=== PATIENT | female | born 1925 | race Caucasian/White ===

== ENCOUNTER 2017-04-22 02:51 | Emergency (ER) | payer OTHER ==
[~2017-04-22] VITALS: Ht 167.6 cm; Wt 68.0 kg
[~2017-04-22 02:51] MED LIST: ACIDOPHILUS1 EAC3; AFEDITAB CR30 MG PO; AMITIZA8 MCG PO; AMITRIPTYLINE H10 M3 PO; ATENOLOL 50 MG50 M1 PO; ATENOLOL 50MG T50 M1 PO; BENGAY GREASELE57 GM TOP; BENTYL 20 MG TA20 M1 PO; BISACODYL SUPP10 MG RECTAL; CARAFATE 1 GM TA1 G1 PO; CELEBREX 200 M200 M1 PO; COLACE100 MG; COLACE100 MG PO; COUMADIN 2 MG TA2 M1 PO; COUMADIN 2.5MG2.5 M1 PO; CYCLOBENZAPRINE5 MG PO; DEXILANT60 MG; DIFLUCAN150 MG PO; DOXYCYCLINE 10100 MG PO; ENOXAPARIN120 MG/0.1 SUBQ; ENOXAPARIN80 MG/0.1 SUBQ; FAMCYCLOVIR 50500 M1 PO; FLEXERIL; HYDROCHLOROTH12.5 M1 PO; HYDROCHLOROTH12.5 MG PO; HYDROCODONE-AP1 EAC6 PO; HYDROCORTISONE28 GM TP; K-TAB ER20 MEQ PO; KLOR-CON 10 ER10 MEQ PO; LASIX 20 MG TAB20 MG PO; LIDODERM 5%1 PATC1; LIDODERM 5%1 PATC1 TRANSDERM; LINZESS145 MCG PO; LIORESAL 10 MG10 MG; LIORESAL 10 MG10 MG PO; LISINOPRIL20 MG PO; LISINOPRIL5 MG PO; MENTHOL TOP; MIRALAX17 GM PO; NORCO 5-325 TA1 EACH PO; ONDANSETRON HCL4 M2 PO; OXYCODONE HCL 55 MG PO; OXYCONTIN10 M1 PO; PAIN RELIEF CRE57 GM TOP; PANTOPRAZOLE SO40 M1 PO; PERCOCET 5-3251 EACH PO; PERCOCET PO; POLYETHYLENE G500 G3 PO; POTASSIUM20; PRILOSEC 20 MG20 MG PO; PRINIVIL20 MG; PROBIOTIC1 EAC1 PO; PROTONIX40 M1 PO; SENNA PLUS TAB1 EACH PO; SENOKOT-S1 TA1 PO; SIMVASTATIN20 MG PO; SIMVASTATIN40 MG PO; SODIUM PHOSPHATE; TIZANIDINE HCL4 MG PO; TRAMADOL 50 MG50 MG; TRAMADOL 50 MG50 MG PO; TYLENOL325 MG PO; VALACYCLOVIR1000 MG; VALACYCLOVIR1000 MG PO; ZANAFLEX4 M1 PO; ZOLOFT25 MG PO; [UNRECOGNIZED DRUG - OTHER] TOP
[2017-04-22] MEDS ORDERED: ACIDOPHILUS1 EAC3 PO (03:29)
[2017-04-22] MEDS ORDERED: OCUVITE ADULT1 EAC1 PO (03:30)
[2017-04-22] MEDS ORDERED: CENTRUM SILVER1 EAC4 PO (03:30)
[2017-04-22] MEDS ORDERED: SYNTHROID50 MCG PO (03:30)
[2017-04-22] MEDS ORDERED: MIRALAX17 GM PO (03:31)
[2017-04-22] MEDS ORDERED: NIFEDIPINE ER30 M1 PO (03:31)
[2017-04-22] MEDS ORDERED: ZANTAC 150MG T150 MG PO (03:32)
[2017-04-22] MEDS ORDERED: REQUIP 0.25 M0.25 M1 PO (03:33)
[2017-04-22] MEDS ORDERED: CARAFATE 1 GM TA1 G1 PO (03:35)
[2017-04-22] MEDS ORDERED: VITAMIN D3400 UNIT PO (03:38)
[2017-04-22 04:27] LABS: CALCIUM 8.9 mg/dL (8.5-10.1); CREATININE 0.6 mg/dL (0.6-1.0); HEMATOCRIT 40.4 % (37.0-47.0); HEMOGLOBIN 13.5 gm/dL (12.0-15.0); MCH 28.6 pg (26.0-34.0); MCHC 33.3 g/dL (28.0-37.0); MCV 85.9 fL (80.0-100.0); PLATELET COUNT 195 thou/uL (150-400); POTASSIUM 3.5 mmol/L (3.5-5.1); RBC 4.71 mil/uL (4.20-5.00); WBC 14.3 thou/uL (4.0-11.0)
[2017-04-22 04:31] LABS: APTT 28.5 Seconds (24.5-32.8); INR 2.7; PROTIME 27.7 Seconds (9.3-11.4)
[2017-04-22 04:56] LABS: ABSOLUTE NEUTROPHILS 11.4 thou/uL (1.4-8.2); ANISOCYTOSIS 1+; ATYPICAL LYMPHS 3 %; POLYCHROMASIA OCCASIONAL
[2017-04-22] MEDS ORDERED: KEFLEX500 M1 PO (05:59)
[2017-04-22 06:25] VITALS: BP 199/109
== END 2017-04-22 06:25 | disposition home or self-care (01) ==
LOC: ER 02:51
PROVIDERS: Emergency Medicine
DX: R04.0 Epistaxis (principal); I10 Essential (primary) hypertension; I50.9 Heart failure, unspecified; K21.9 Gastro-esophageal reflux disease without esophagitis; G89.29 Other chronic pain; Z79.01 Long term (current) use of anticoagulants; Z91.041 Radiographic dye allergy status; Z88.2 Allergy status to sulfonamides; Z90.710 Acquired absence of both cervix and uterus; Z90.49 Acquired absence of other specified parts of digestive tract; Z98.890 Other specified postprocedural states

== ENCOUNTER 2017-05-14 10:17 | Inpatient (IN) | payer OTHER ==
[~2017-05-14] VITALS: Ht 165.1 cm; Wt 66.7 kg
--- NOTE | ~2017-05-14 | EKG ---
[address] [place] [address] ELECTROCARDIOGRAM REPORT Name: ADELA WHITFIELD Room #: 445-P ADM IN M.R.#: [id number] Admission: 05/14/17 Attend Phys: Get Kwon MD Discharge: Date of : [birth year] Report #: [id number] THIS REPORT FOR: //name// [facility] ED Test Date: 2017-05-14 Test Time: 11:04:48 Pat Name: ADELA WHITFIELD Department: Room: [facility] Gender: F Manager Zone: MOLLY : 1925 Requested By: Avelino Lundy Order Number: [id number] MD: Genaro Rosas Measurements Intervals [place] Rate: 76 P: [place]: QRS: 33 QRSD: 105 T: 65 QT: 407 QTc: 458 Interpretive Statements Atrial fibrillation Nonspecific ST and T wave abnormality Compared to ECG 08/27/2015 06:35:23 Sinus rhythm no longer present Electronically Signed On 05-14-2017 17:17:35 COMPLEX CARE NURSE by Genaro Rosas [email or web address] <ELECTRONICALLY SIGNED> By: Genaro Rosas MD, [facility] 05/14/17 1707 1104 1104 Genaro Rosas MD, [facility] /EPI
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
--- NOTE | ~2017-05-14 | HC ---
[facility] [place] [address] CONSULTATION Name: PEPPERSARAHADELALOVE MANJARREZ Room #: 445-P ADM IN M.R.#: [id number] Admission: 05/14/17 Attend Phys: Get Kwon MD Discharge: Date of : [birth year] Report #: [id number] THIS REPORT FOR: //name// CC: Get Doty REASON FOR CONSULTATION: I was asked to reevaluate concerning persistent leukocytosis. HISTORY OF PRESENT ILLNESS: The patient is an 89-year-old group home resident at [facility], who presents with generalized weakness and confusion for 1 week duration. She was found to have increased peripheral edema. At the time of presentation, she had a white count of 16.5. From review of her previous CBCs, it is noted that she was in the Emergency Room on April 22 where her white count was 14.3. This was associated with an episode of epistaxis. She was found to have lower extremity edema with venous stasis changes and cellulitis of the left lower leg. Placed on vancomycin initially along with ceftriaxone. Has continued on ceftriaxone. Despite this, her white count still is 14.9 today. No fever, chills or sweats. The patient has had no further complaints. Her mental status is back to nearly her baseline. No cough or sputum production. No nausea, vomiting or diarrhea. No dysuria or frequency. She does have urinary incontinence. Her lower extremity edema has improved. She has a remote history of left breast cancer. Has coronary artery disease with paroxysmal atrial fibrillation and congestive heart failure history. No other cancer history. She has been vaccinated for pneumonia and influenza. The patient's daughter states that there was significant amount of respiratory tract infection noted at the facility. The patient has been treated for lower urinary tract infection a month ago with cephalexin. Prior to her admission, she was placed on doxycycline for her lower extremities. ALLERGIES: IODINE, SULFA. MEDICATIONS: As noted on her MAR, now on ceftriaxone. PAST MEDICAL HISTORY: Coronary artery disease, status post CABG, hypertension, hyperlipidemia, paroxysmal atrial fibrillation, congestive heart failure, breast cancer in 1995 with lumpectomy and radiation, shingles, cholecystectomy, constipation, chronic pain syndrome, gastroesophageal reflux, hysterectomy, constipation, IBS, compression fracture L2-L3, laminectomy L3, L4, 5, macular degeneration. REVIEW OF SYSTEMS: Noted above with no additions. Most notably no decubiti. No cough or sputum production. No pharyngitis symptoms. No dysuria, frequency, back or flank pain. [address] [address] CONSULTATION Name: ADELA WHITFIELD Room #: 445-P [facility] IN M.R.#: [id number] Admission: 05/14/17 Attend Phys: Get Kwon MD Discharge: Date of : [birth year] Report #: [id number] PHYSICAL EXAMINATION: VITAL SIGNS: Afebrile and hemodynamically stable. GENERAL: She was alert and cooperative, although she was mildly confused. She did not know where she was. HEENT: Unremarkable. NECK: Supple. There is no adenopathy. LUNGS: Few crackles heard in the bases bilaterally without consolidation. HEART: Regular, without murmur. ABDOMEN: Soft, nontender, no hepatosplenomegaly or mass. EXTREMITIES: She had 1+ peripheral edema, left lower extremity. No evidence of cellulitis. Pulses were palpable. NEUROLOGIC: Nonfocal. LABORATORY STUDIES: Hemoglobin 13.5, platelet count 166,000, WBC 14.9. Differential on admission was unremarkable. Sodium 141, potassium 2.2, bicarbonate 33, creatinine 0.7, on admission AST was 78, ALT 126, bilirubin 0.8, alkaline phosphatase 104. Procalcitonin was unremarkable. BNP 3663. Urinalysis unremarkable. Blood culture negative. Ultrasound negative for DVT. Chest x-ray, bibasilar fine infiltrates. Echocardiogram, diastolic dysfunction. IMPRESSION: Persistent leukocytosis, which has been evident for a month. Differential initially was unremarkable. This will be repeated along with a peripheral smear. She has evidence of mild hepatitis. Unclear if this is related to viral infection or more passive congestion from her heart failure. We will repeat hepatic profile. We will also continue with antibiotics enterally. Start her on Tamiflu until we get viral respiratory panel back. Switch ceftriaxone to Omnicef to both cover pulmonary and skin and soft tissue infection. Repeat her chest x-ray. Check urine antigens. If no improvement, then would consider imaging her abdomen. <ELECTRONICALLY SIGNED> By: Fahad Irwin MD 05/18/17 0915 1057 192 Fahad Irwin MD /nt
--- NOTE | ~2017-05-14 | HC ---
[facility] [place] [address] CONSULTATION Name: ADELA WHITFIELD Room #: 447-P ADM IN M.R.#: [id number] Admission: 05/14/17 Attend Phys: eGt Kwon MD Discharge: Date of : [birth year] Report #: [id number] THIS REPORT FOR: //name// CC: Get Doty REASON FOR CONSULTATION: Hypokalemia. REASON FOR PRESENTATION: Generalized weakness. HISTORY OF PRESENT ILLNESS: The history is obtained from the medical chart. She is really not able to provide me with the details of the history. She is an 89-year-old with what seems to be dementia. She was brought from her long-term with generalized weakness. She was found to have cellulitis of both lower extremities and was admitted for further evaluation and management. It does look like that she had some sort of malnutrition. On her presentation, she was found to be hypokalemic with hypomagnesemia. This has required repeated replacement with no success so far. Potassium has been as low as 2.3. She is on the alkalotic side with a carbon dioxide of 32. She also had some sort of hypomagnesemia with the magnesium of 1.7 at presentation and her blood pressure is elevated. Again, as I have stated, the details of her past medical history are not available. PAST MEDICAL HISTORY: 1. No known renal issues. 2. Breast cancer in 1995. 3. CABG x 3. 4. Hyperlipidemia. 5. Chronic pain syndrome. 6. Questionable history of cardiac thrombus. 7. Hysterectomy. 8. Macular degeneration. 9. Intestinal obstructions in the past. FAMILY HISTORY: Unobtainable given the patient's mental status. ALLERGIES: CONTRAST. SOCIAL HISTORY: [facility]. No drug or alcohol abuse. REVIEW OF SYSTEMS: Unobtainable given the patient's mental status. PHYSICAL EXAMINATION: GENERAL: She is alert, but disoriented. VITAL SIGNS: Blood pressure is 180/92, temperature 36.1. HEAD AND NECK: No jugular venous distention. CHEST: Limited air entry bilaterally, but no crackles. [facility] [address] [place] [address] CONSULTATION Name: ADELA WHITFIELD Room #: 447-P [facility] IN [facility].#: [id number] Admission: 05/14/17 Attend Phys: Get Kwon MD Discharge: Date of : [birth year] Report #: [id number] CARDIOVASCULAR: No rub detected. ABDOMEN: Soft, nontender. LOWER EXTREMITIES: Jose L wraps applied bilaterally. LABORATORY DATA: Laboratory values reviewed. White blood cell count 15.5. UA is completely unremarkable. Potassium is 2.5, carbon dioxide is 32. No magnesium this morning. ASSESSMENT, IMPRESSION, PLAN: 1. Hypertension. 2. Persistent hypokalemia with hypertension and metabolic alkalosis. 3. Debility. 4. Lower extremity cellulitis. 5. History of cardiac thrombus in the past. 6. History of breast cancer. 7. Source of her hypokalemia will need to be investigated. I will send appropriate laboratory values. 8. Given her metabolic alkalosis, hypokalemia and high blood pressure, we will initiate the patient on Aldactone. We will continue to follow along. <ELECTRONICALLY SIGNED> By: Harshil Sol MD 05/20/17 1703 0810 1058 Harshil Sol MD /nt
--- NOTE | ~2017-05-14 | S ---
[facility] [place] [address] SURGICAL PATH RPT PROCEDURE Name: ADELA WHITFIELD Room #: 445-P ADM IN M.R.#: [id number] Admission: 05/14/17 Date of : [birth year] Discharge: Report #: [id number] Path Case #: [id number] PATHOLOGY REPORT COLLECTION DATE: 05/17/2017 RECEIVED DATE: 05/17/2017 SUBMITTING PHYS: Dr. Get Kwon OTHER PHYS: Dr. Christel Irwin SPECIMEN(S) RECEIVED: A.Peripheral smear * * * * * * * * * * * * FINAL DIAGNOSIS: Peripheral blood smear: - Mild leukocytosis / neutrophilia (see comment). COMMENT: Overall, the peripheral blood has mild leukocytosis / neutrophilia. The hemoglobin and platelet counts are within the normal reference ranges. Mild reactive changes are noted. The etiology of the findings is unclear based entirely on slide review. It is likely a reactive condition. Potential causes of leukocytosis and neutrophilia include infections, drug reactions, smoking and primary bone marrow disorders. If persistent, progressive and/or unexplained, BCR-ABL mutational analysis may provide additional information, if clinically indicated. Correlation with clinical history and additional laboratory data is recommended. (CLW:candace; 05/17/2017) PATHOLOGIST: Ania Poole M.D. REPORT ELECTRONICALLY SIGNED BY: Ania Poole M.D. DATE/TIME: 05/18/2017 13:13 * * * * * * * * * * * * MICROSCOPIC DESCRIPTION: CBC Data (05/14/17): WBC 16,500 /uL, RBC 4.71, hemoglobin 13.4 g/dL, hematocrit 40.7%, MCV 86.5 fL, MCH 28.5 pg, MCHC 32.9 g/dL, RDW 17.6%. Platelet count 171,000 /uL. Automated white blood cell differential: segs 87.9%, lymphs 5.3%, monos 6.3%, eos 0.2%, and basos 0.3%. Peripheral Blood Smear: Cytomorphological examination of the Baron's stained peripheral blood smear confirms the provided data. Red blood cells are normocytic and are without significant anisopoikilocytosis. White blood cells are mildly increased in number. They are predominantly [address] [address] SURGICAL PATH RPT PROCEDURE Name: JELENA WHITFIELDLOVE MANJARREZ Room #: 445-P ADM IN [facility].#: [id number] Admission: 05/14/17 Date of : [birth year] Discharge: Report #: [id number] Path Case #: [id number] segmented neutrophils with reactive changes. They are without significant dyspoiesis or significant left shift. Lymphocytes are predominantly small, round, and mature appearing with condensed chromatin and scant cytoplasm with admixed large granular lymphocytes and occasional reactive appearing lymphocytes. On scanning, no markedly atypical lymphoid cells are seen. Monocytes are mature. Platelets are adequate in number and mainly normal in morphology with rare larger platelets noted. (CLW:candace; 05/17/2017) GROSS PATHOLOGY: Received are four peripheral blood smears (2 Baron's stained and 2 unstained), all labeled Adela Whitfield I. CLINICAL HISTORY: 89-year-old woman with leukocytosis. Morphologic review of the peripheral blood smear is requested by the patient's physician. INITIAL CPT CODE(S): A; [place] Professional services performed by [facility] at [facility] [address], [place] [address] Technical services performed by [facility] at [address] [place] [address], [address], [place] [address]. Avelino Lundy [facility] [address] [place] [address] PHONE: [phone] DIRECTOR: Campos Guillen M.D. * * * END OF REPORT * * *
[~2017-05-14 10:17] MED LIST changes: +ACIDOPHILUS1 EAC3 PO; +CENTRUM SILVER1 EAC4 PO; +KEFLEX500 M1 PO; +NIFEDIPINE ER30 M1 PO; +OCUVITE ADULT1 EAC1 PO; +REQUIP 0.25 M0.25 M1 PO; +SYNTHROID50 MCG PO; +VITAMIN D3400 UNIT PO; +ZANTAC 150MG T150 MG PO
[2017-05-14 10:19] VITALS: BP 154/87
[2017-05-14 12:13] LABS: ABSOLUTE NEUTROPHILS 14.5 thou/uL (1.4-8.2); BASOPHILS 0.3 % (0.0-2.0); EOSINOPHILS 0.2 % (0.0-3.0); HEMATOCRIT 40.7 % (37.0-47.0); HEMOGLOBIN 13.4 gm/dL (12.0-15.0); LYMPHOCYTES 5.3 % (24.0-44.0); MCH 28.5 pg (26.0-34.0); MCHC 32.9 g/dL (28.0-37.0); MCV 86.5 fL (80.0-100.0); MONOCYTES 6.3 % (1.0-8.0); PLATELET COUNT 171 thou/uL (150-400); POLYS 87.9 % (36.0-66.0); RBC 4.71 mil/uL (4.20-5.00); RDW 17.6 % (10.5-14.5); WBC 16.5 thou/uL (4.0-11.0)
[2017-05-14 12:24] LABS: ANION GAP 9 mmol/L (7-16); BUN 18 mg/dL (7-18); CALCIUM 8.4 mg/dL (8.5-10.1); CHLORIDE 103 mmol/L (98-107); CO2 29 mmol/L (21-32); CREATININE 0.6 mg/dL (0.6-1.0); GLUCOSE 152 mg/dL (74-106); SODIUM 141 mmol/L (136-145)
[2017-05-14 12:27] LABS: POTASSIUM 2.3 mmol/L (3.5-5.1)
[2017-05-14 12:32] LABS: MAGNESIUM 1.7 mg/dL (1.8-2.4); TROPONIN-I < 0.04 ng/mL (<0.06)
[2017-05-14 12:46] LABS: URINE BILIRUBIN NEGATIVE (Negative); URINE BLOOD NEGATIVE (Negative); URINE CLARITY CLEAR; URINE COLOR YELLOW; URINE GLUCOSE-RANDOM* TRACE (Negative); URINE KETONES NEGATIVE (Negative); URINE LEUKOCYTES-REFLEX NEGATIVE (Negative); URINE NITRITE-REFLEX NEGATIVE (Negative); URINE PROTEIN (DIPSTICK) NEGATIVE (Negative); URINE UROBILINOGEN 0.2 E.U./dl (0.2-1.0)
[2017-05-14 12:59] LABS: INR 1.9; PROTIME 19.7 Seconds (9.3-11.4)
[2017-05-14 16:30] VITALS: BP 138/72
[2017-05-14] MEDS ORDERED: OCUVITE ADULT1 EAC1 PO (18:23)
[2017-05-14] MEDS ORDERED: ATENOLOL 25 MG25 M1 PO (18:24)
[2017-05-14] MEDS ORDERED: SYNTHROID50 MCG PO (18:24)
[2017-05-14] MEDS ORDERED: LISINOPRIL20 MG PO (18:25)
[2017-05-14] MEDS ORDERED: UNICOMPLEX M TA1 TA1 PO (18:25)
[2017-05-14] MEDS ORDERED: NIFEDIPINE ER30 M1 PO (18:26)
[2017-05-14] MEDS ORDERED: MIRALAX17 GM PO ×2 (18:27→18:34)
[2017-05-14] MEDS ORDERED: KLOR-CON 1010 MEQ PO (18:28)
[2017-05-14] MEDS ORDERED: ZANTAC 150MG T150 MG PO (18:29)
[2017-05-14] MEDS ORDERED: REQUIP 0.25 M0.25 M1 PO (18:30)
[2017-05-14] MEDS ORDERED: CARAFATE 1 GM TA1 G1 PO (18:31)
[2017-05-14] MEDS ORDERED: ZOLOFT50 MG PO (18:31)
[2017-05-14] MEDS ORDERED: VITAMIN D1000 UNI1 PO (18:32)
[2017-05-14] MEDS ORDERED: COUMADIN 1MG TAB1 M1 PO (18:33)
[2017-05-14] MEDS ORDERED: COUMADIN 2 MG TA2 M1 PO (18:34)
[2017-05-14] MEDS ORDERED: VALACYCLOVIR1000 MG PO (18:36)
[2017-05-14] MEDS ORDERED: ARTHRITIS PAI42.5 GM TOP (18:37)
[2017-05-14] MEDS ORDERED: POTASSIUM20 PO (18:39)
[2017-05-14] MEDS ORDERED: LIDODERM1 EACH TRANSDERM (18:39)
[2017-05-14] MEDS ORDERED: TRAMADOL 50 MG50 MG PO (18:39)
[2017-05-14] MEDS ORDERED: DOXYCYCLINE 10100 MG PO (18:41)
[2017-05-14] MEDS ORDERED: ACIDOPHILUS1 EAC3 PO (18:42)
[2017-05-14 20:16] VITALS: BP 146/90
[2017-05-15 03:38] LABS: ALBUMIN 2.4 g/dL (3.4-5.0); ANION GAP 9 mmol/L (7-16); BUN 17 mg/dL (7-18); CALCIUM 8.5 mg/dL (8.5-10.1); CHLORIDE 104 mmol/L (98-107); CHOLESTEROL 132 mg/dL (<200); CO2 27 mmol/L (21-32); CREATININE 0.7 mg/dL (0.6-1.0); GLUCOSE 114 mg/dL (74-106); HDL CHOLESTEROL 70 mg/dL (>40); LDL CHOLESTEROL 48 mg/dL (<100); MAGNESIUM 2.2 mg/dL (1.8-2.4); SGOT 78 U/L (15-37); SGPT 126 U/L (30-65); SODIUM 140 mmol/L (136-145); TC:HDL 1.9 Ratio (Not establshd); TOTAL BILIRUBIN 0.8 mg/dL (<0.1-1.0); TOTAL PROTEIN 7.2 g/dL (6.4-8.2); TRIGLYCERIDE 70 mg/dL (<150); VLDL 14 mg/dL (<40)
[2017-05-15 03:39] LABS: POTASSIUM 3.8 mmol/L (3.5-5.1)
[2017-05-15 03:42] VITALS: BP 158/95
[2017-05-15 04:19] LABS: TSH 1.118 uIU/mL (0.358-3.740)
[2017-05-15 07:30] VITALS: BP 170/95
[2017-05-15 11:09] LABS: GLYCOHEMOGLOBIN (HGB A1C) 5.9 % (4.8-5.6)
[2017-05-15 12:14] LABS: HEMATOCRIT 40.7 % (37.0-47.0); HEMOGLOBIN 13.2 gm/dL (12.0-15.0); MCH 27.9 pg (26.0-34.0); MCHC 32.4 g/dL (28.0-37.0); MCV 86.3 fL (80.0-100.0); RBC 4.72 mil/uL (4.20-5.00); WBC 15.6 thou/uL (4.0-11.0)
[2017-05-15 12:26] LABS: INR 2.4; PROTIME 24.5 Seconds (9.3-11.4)
[2017-05-15 15:55] VITALS: BP 169/119
[2017-05-15 17:30] VITALS: BP 178/104
[2017-05-15 19:17] VITALS: BP 150/84
[2017-05-16 03:27] VITALS: BP 186/95
[2017-05-16 05:04] LABS: HEMATOCRIT 41.2 % (37.0-47.0); HEMOGLOBIN 13.6 gm/dL (12.0-15.0); MCH 28.2 pg (26.0-34.0); MCV 85.5 fL (80.0-100.0); RBC 4.81 mil/uL (4.20-5.00); WBC 14.6 thou/uL (4.0-11.0)
[2017-05-16 05:07] LABS: CALCIUM 8.3 mg/dL (8.5-10.1); CREATININE 0.7 mg/dL (0.6-1.0)
[2017-05-16 05:10] LABS: POTASSIUM 2.2 mmol/L (3.5-5.1)
[2017-05-16 08:22] VITALS: BP 188/113
[2017-05-16 11:59] VITALS: BP 156/87
[2017-05-16 15:03] VITALS: BP 150/76
[2017-05-16 19:49] LABS: MAGNESIUM 2.6 mg/dL (1.8-2.4)
[2017-05-16 19:57] LABS: POTASSIUM 2.5 mmol/L (3.5-5.1)
[2017-05-16 20:00] VITALS: BP 149/92
[2017-05-17 02:50] LABS: INR 3.2; PROTIME 31.8 Seconds (9.3-11.4)
[2017-05-17 04:00] VITALS: BP 145/97
[2017-05-17 08:30] VITALS: BP 187/111
[2017-05-17 09:54] LABS: POTASSIUM 3.2 mmol/L (3.5-5.1)
[2017-05-17 09:57] LABS: HEMATOCRIT 41.9 % (37.0-47.0); HEMOGLOBIN 13.5 gm/dL (12.0-15.0); MCH 27.9 pg (26.0-34.0); MCHC 32.3 g/dL (28.0-37.0); MCV 86.5 fL (80.0-100.0); RBC 4.84 mil/uL (4.20-5.00); WBC 14.9 thou/uL (4.0-11.0)
[2017-05-17 11:21] LABS: ALBUMIN 2.4 g/dL (3.4-5.0); DIRECT BILIRUBIN 0.2 mg/dL (<0.1-0.3); TOTAL BILIRUBIN 0.6 mg/dL (<0.1-1.0); TOTAL PROTEIN 6.9 g/dL (6.4-8.2)
[2017-05-17 17:08] VITALS: BP 179/88
[2017-05-17 19:46] VITALS: BP 144/84
[2017-05-18 02:11] LABS: ADENOVIRUS Negative (Negative); INFLUENZA A Negative (Negative); INFLUENZA B Negative (Negative); METAPNEUMOVIRUS Negative (Negative); PARAINFLUENZA 1 Negative (Negative); PARAINFLUENZA 2 Negative (Negative); PARAINFLUENZA 3 Negative (Negative); RHINOVIRUS Negative (Negative); RSV A Negative (Negative); RSV B Negative (Negative)
[2017-05-18 02:58] VITALS: BP 156/97
[2017-05-18 04:09] LABS: CREATININE 0.7 mg/dL (0.6-1.0)
[2017-05-18 04:11] LABS: POTASSIUM 2.3 mmol/L (3.5-5.1)
[2017-05-18 04:27] LABS: HEMOGLOBIN 14.1 gm/dL (12.0-15.0); MCH 28.1 pg (26.0-34.0); MCHC 32.7 g/dL (28.0-37.0); PLATELET COUNT 179 thou/uL (150-400); RDW 17.9 % (10.5-14.5); WBC 14.2 thou/uL (4.0-11.0)
[2017-05-18 06:14] VITALS: BP 149/88
[2017-05-18 08:30] VITALS: BP 151/87
[2017-05-18 10:18] LABS: CALCIUM 8.4 mg/dL (8.5-10.1); CREATININE 0.8 mg/dL (0.6-1.0); MAGNESIUM 1.8 mg/dL (1.8-2.4)
[2017-05-18 10:20] LABS: POTASSIUM 2.8 mmol/L (3.5-5.1)
[2017-05-18 10:27] LABS: ABSOLUTE NEUTROPHILS 12.4 thou/uL (1.4-8.2)
[2017-05-18 10:28] LABS: ANISOCYTOSIS 1+
[2017-05-18 12:02] VITALS: BP 148/99
[2017-05-18 16:00] VITALS: BP 171/91
[2017-05-18 19:53] VITALS: BP 150/95
[2017-05-19 02:11] LABS: GLYCOHEMOGLOBIN (HGB A1C) 5.9 % (4.8-5.6)
[2017-05-19 04:31] VITALS: BP 180/92
[2017-05-19 06:20] LABS: HEMATOCRIT 42.6 % (37.0-47.0); MCH 27.9 pg (26.0-34.0); MCHC 32.8 g/dL (28.0-37.0); MCV 85.1 fL (80.0-100.0); RDW 17.9 % (10.5-14.5); WBC 15.5 thou/uL (4.0-11.0)
[2017-05-19 06:27] LABS: CALCIUM 8.7 mg/dL (8.5-10.1); CREATININE 0.8 mg/dL (0.6-1.0)
[2017-05-19 06:31] LABS: POTASSIUM 2.5 mmol/L (3.5-5.1)
[2017-05-19 07:15] VITALS: BP 158/66
[2017-05-19 16:10] VITALS: BP 176/90
[2017-05-19 20:35] VITALS: BP 129/85
[2017-05-20 04:49] LABS: CALCIUM 8.5 mg/dL (8.5-10.1); CREATININE 0.8 mg/dL (0.6-1.0)
[2017-05-20 05:18] LABS: HEMATOCRIT 41.4 % (37.0-47.0); HEMOGLOBIN 13.4 gm/dL (12.0-15.0); MCH 27.9 pg (26.0-34.0); MCHC 32.4 g/dL (28.0-37.0); MCV 86.4 fL (80.0-100.0); RBC 4.79 mil/uL (4.20-5.00); RDW 17.7 % (10.5-14.5); WBC 16.9 thou/uL (4.0-11.0)
[2017-05-20 05:22] VITALS: BP 139/72
[2017-05-20 16:35] VITALS: BP 133/88
[2017-05-20 21:35] VITALS: BP 151/70
[2017-05-21 04:55] VITALS: BP 139/75
[2017-05-21 07:36] LABS: ABSOLUTE NEUTROPHILS 15.8 thou/uL (1.4-8.2); BASOPHILS 0.2 % (0.0-2.0); EOSINOPHILS 0.1 % (0.0-3.0); HEMOGLOBIN 13.4 gm/dL (12.0-15.0); LYMPHOCYTES 4.6 % (24.0-44.0); MCH 27.3 pg (26.0-34.0); MCHC 31.9 g/dL (28.0-37.0); MCV 85.6 fL (80.0-100.0); MONOCYTES 4.9 % (1.0-8.0); PLATELET COUNT 197 thou/uL (150-400); POLYS 90.2 % (36.0-66.0); RBC 4.91 mil/uL (4.20-5.00); RDW 17.6 % (10.5-14.5); WBC 17.5 thou/uL (4.0-11.0)
[2017-05-21 07:40] LABS: URINE BILIRUBIN NEGATIVE (Negative); URINE BLOOD NEGATIVE (Negative); URINE CLARITY CLEAR; URINE COLOR YELLOW; URINE GLUCOSE-RANDOM* NEGATIVE (Negative); URINE KETONES NEGATIVE (Negative); URINE LEUKOCYTES-REFLEX NEGATIVE (Negative); URINE NITRITE-REFLEX NEGATIVE (Negative); URINE PROTEIN (DIPSTICK) NEGATIVE (Negative); URINE SPECIFIC GRAVITY 1.015 (1.005-1.035); URINE UROBILINOGEN 0.2 E.U./dl (0.2-1.0)
[2017-05-21 07:50] LABS: ALBUMIN 2.2 g/dL (3.4-5.0); CALCIUM 8.3 mg/dL (8.5-10.1); CREATININE 0.8 mg/dL (0.6-1.0); PHOSPHORUS 3.2 mg/dL (2.5-4.9)
[2017-05-21 07:52] LABS: POTASSIUM 2.7 mmol/L (3.5-5.1)
[2017-05-21 16:00] VITALS: BP 134/81
[2017-05-21 20:51] VITALS: BP 135/85
[2017-05-22 03:56] VITALS: BP 130/89
[2017-05-22 05:04] LABS: HEMATOCRIT 39.1 % (37.0-47.0); HEMOGLOBIN 12.8 gm/dL (12.0-15.0); MCH 27.8 pg (26.0-34.0); MCHC 32.8 g/dL (28.0-37.0); MCV 84.7 fL (80.0-100.0); RBC 4.62 mil/uL (4.20-5.00); RDW 17.3 % (10.5-14.5); WBC 17.2 thou/uL (4.0-11.0)
[2017-05-22 05:16] LABS: ALBUMIN 2.1 g/dL (3.4-5.0); CREATININE 0.8 mg/dL (0.6-1.0); MAGNESIUM 1.7 mg/dL (1.8-2.4); PHOSPHORUS 3.1 mg/dL (2.5-4.9)
[2017-05-22 05:18] LABS: POTASSIUM 3.3 mmol/L (3.5-5.1)
[2017-05-22 05:42] LABS: PROTIME 103.1 Seconds (9.3-11.4)
[2017-05-22 05:56] LABS: INR 10.5
[2017-05-22 08:00] VITALS: BP 140/78
[2017-05-22 15:35] VITALS: BP 124/67
[2017-05-22 16:21] LABS: MAGNESIUM 1.8 mg/dL (1.8-2.4); POTASSIUM 3.7 mmol/L (3.5-5.1)
[2017-05-22 16:30] LABS: PROTIME 113.4 Seconds (9.3-11.4)
[2017-05-22 16:33] LABS: INR 11.6
[2017-05-22 20:21] VITALS: BP 122/81
[2017-05-22 23:46] VITALS: BP 104/85; BP 152/88
[2017-05-23 02:25] VITALS: BP 139/89; BP 160/81
[2017-05-23 09:53] LABS: PROTIME 17.6 Seconds (9.3-11.4)
[2017-05-23 09:55] LABS: INR 1.7
[2017-05-23 10:00] VITALS: BP 151/92
[2017-05-23] MEDS ORDERED: ALDACTONE25 MG PO (12:33)
[2017-05-23 18:00] VITALS: BP 133/95
== END 2017-05-23 18:31 | disposition hospice, home (50) | DRG 871 ==
LOC: ER 10:17 → EROBS 13:02 → 4S 13:02
PROVIDERS: Emergency Medicine; Hospitalist; Internal Medicine; Internal Medicine Infectious Disease; Internal Medicine Nephrology; Nurse Practitioner; Nurse Practitioner Family
PROC: 05H533Z Insertion of Infusion Device into Right Subclavian Vein, Percutaneous Approach (ICD-10-PCS; 2017-05-15)
PROC: 30233P1 Transfusion of Nonautologous Frozen Red Cells into Peripheral Vein, Percutaneous Approach (ICD-10-PCS; principal; 2017-05-22)
PROC: 30233K1 Transfusion of Nonautologous Frozen Plasma into Peripheral Vein, Percutaneous Approach (ICD-10-PCS; principal; 2017-05-22)
DX: A41.9 Sepsis, unspecified organism (principal); E43 Unspecified severe protein-calorie malnutrition; G93.41 Metabolic encephalopathy; L03.116 Cellulitis of left lower limb; L03.115 Cellulitis of right lower limb; C25.9 Malignant neoplasm of pancreas, unspecified; E87.3 Alkalosis; E78.5 Hyperlipidemia, unspecified; I10 Essential (primary) hypertension; E87.6 Hypokalemia; R13.10 Dysphagia, unspecified; I25.10 Atherosclerotic heart disease of native coronary artery without angina pectoris; I48.0 Paroxysmal atrial fibrillation; E83.42 Hypomagnesemia; E11.9 Type 2 diabetes mellitus without complications; F39 Unspecified mood [affective] disorder; G89.4 Chronic pain syndrome; K21.9 Gastro-esophageal reflux disease without esophagitis; Z66 Do not resuscitate; Z87.81 Personal history of (healed) traumatic fracture; Z79.4 Long term (current) use of insulin; Z79.01 Long term (current) use of anticoagulants; Z87.440 Personal history of urinary (tract) infections; Z91.041 Radiographic dye allergy status; Z68.24 Body mass index [BMI] 24.0-24.9, adult; Z95.1 Presence of aortocoronary bypass graft; Z85.3 Personal history of malignant neoplasm of breast; Z88.2 Allergy status to sulfonamides; Z90.710 Acquired absence of both cervix and uterus; Z90.49 Acquired absence of other specified parts of digestive tract
CPT/HCPCS: 10100; 27001